=== PATIENT | male | born 1990 | race Caucasian/White ===

== ENCOUNTER 2018-12-13 06:07 | Emergency (ER) | payer SELFPAY ==
[~2018-12-13] VITALS: Ht 180.3 cm; Wt 70.3 kg
[2018-12-13 06:11] VITALS: BP 145/80
== END 2018-12-13 06:35 | disposition left against medical advice (07) ==
LOC: ER 06:07
DX: F15.10 Other stimulant abuse, uncomplicated (principal); L73.9 Follicular disorder, unspecified; F17.200 Nicotine dependence, unspecified, uncomplicated

== ENCOUNTER 2018-12-18 17:19 | Emergency (ER) | payer SELFPAY ==
[~2018-12-18] VITALS: Ht 167.6 cm; Wt 64.4 kg
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
[2018-12-18] MEDS ORDERED: diphenhydrAMINE HCL 50 MG/ML VIAL ONE (17:48)
[2018-12-18] MEDS ORDERED: HALOPERIDOL LACTATE INJ 5 MG/ML VIAL ONE (17:48)
[2018-12-18] MEDS ORDERED: TDAP [DIPH/PERTUSSIS/TET] 0.5 ML VIAL IM ONE ×3 (17:50→18:00)
[2018-12-18] MEDS ORDERED: LORAZEPAM INJ 2 MG/ML VIAL ONE ×2 (17:50→18:13)
[2018-12-18 17:52] LABS: BASOPHILS # (AUTO) 0.1 /CMM (0.0-0.2); BASOPHILS % (AUTO) 0.9 % (0.0-2.0); EOSINOPHILS % (AUTO) 0.6 % (0.0-6.0); HEMATOCRIT 47 % (39-51); HEMOGLOBIN 15.4 g/dL (13.5-17.5); LYMPHOCYTES # (AUTO) 2.5 /CMM (0.8-4.8); LYMPHOCYTES % (AUTO) 36.7 % (20.0-44.0); MEAN CORPUSCULAR HGB CONC 33 g/dl (31.0-36.0); MEAN CORPUSCULAR VOLUME 89 fL (80-96); MONOCYTES # (AUTO) 0.4 /CMM (0.1-1.30); MONOCYTES % (AUTO) 6.3 % (2.0-12.0); NEUTROPHILS # (AUTO) 3.7 /CMM (1.8-8.9); NEUTROPHILS % (AUTO) 55.5 % (43.0-81.0); PLATELET COUNT (AUTO) 332 /CMM (150-450); RED BLOOD CELL COUNT(AUTO) 5.24 MIL/uL (4.5-6.0); WHITE BLOOD COUNT (AUTO) 6.8 K/uL (4.3-11.0)
[2018-12-18 18:00] LABS: CALCIUM, SERUM 9.5 mg/dL (8.5-10.1); CARBON DIOXIDE 23 mmol/L (21-32); CHLORIDE 106 mmol/L (98-107); CREATININE 1.4 mg/dL (0.6-1.3); GLUCOSE 126 mg/dL (74-106); SODIUM SERUM 144 mmol/L (136-145); UREA NITROGEN, BLOOD 15 mg/dL (7-18)
[2018-12-18] MEDS ORDERED: diphenhydrAMINE HCL 50 MG/ML VIAL IM ONE (18:00)
[2018-12-18] MEDS ORDERED: LORAZEPAM INJ 2 MG/ML VIAL IM ONE ×2 (18:00→18:30)
[2018-12-18] MEDS ORDERED: HALOPERIDOL LACTATE INJ 5 MG/ML VIAL IM ONE (18:00)
[2018-12-18 18:05] LABS: ALANINE AMINOTRANSFERASE 22 U/L (12-78); ALCOHOL, BLOOD < 3 mg/dL (0-0); ALKALINE PHOSPHATASE 92 U/L (46-116); ASPARTATE AMINOTRANSFERASE 22 U/L (15-37); BILIRUBIN,DIRECT 0.1 mg/dL (0.0-0.2); BILIRUBIN,TOTAL 0.5 mg/dL (0.2-1.0); SALICYLATE 4.2 mg/dL (2.8-20.0); TOTAL PROTEIN, SERUM 7.6 g/dL (6.4-8.2)
[2018-12-18 18:16] LABS: APPEARANCE,URINE Clear (CLEAR); BILIRUBIN,URINE SMALL (NEGATIVE); BLOOD, URINE Negative Ery/uL (NEGATIVE); COLOR,URINE Yellow (YELLOW); KETONES,URINE Trace (NEGATIVE); LEUKOCYTE ESTERASE ,URINE Negative (NEGATIVE); NITRITE, URINE Negative (NEGATIVE); PH,URINE 5.5 (5.0-8.0); PROTEIN,URINE 100 mg/dl (NEGATIVE); UGLUCOSE Negative (NEGATIVE); UROBILINOGEN,URINE 0.2 EU/dL (0.2)
[2018-12-18 18:17] LABS: ACETAMINOPHEN < 5 ug/ml (10-30)
[2018-12-18 18:53] LABS: RBC,URINE 0-2 /HPF (0-2); WBC,URINE 0-2 /HPF (0-3)
[2018-12-18 18:54] LABS: BACTERIA,URINE Few /HPF (None Seen); MUCUS,URINE Few /LPF (None Seen); SQUAMOUS EPITHELIAL CELL,UR Rare /HPF (None Seen); URINE AMORPHOUS URATE Moderate /HPF (None Seen)
--- NOTE | 2018-12-18 19:34 | NUR ---
SPOKE W/ CRUZ OFFICER [employer]ISH #[id number]. 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
[2018-12-18] MEDS ORDERED: LIDOCAINE 1%-EPI 1:100,000 20 ML VIAL ONE (23:53)
[2018-12-19] MEDS ORDERED: LIDOCAINE 1%-EPI 1:100,000 20 ML VIAL TP ONE
--- NOTE | 2018-12-19 06:41 | NUR ---
Patient discharged to home in stable condition. Written and verbal after care instructions given. Patient verbalizes understanding of instruction. Pt ambulatory with a steady gait. Pt refused to received after care instruction. pt also refused to sign homeless waiver. refused food as well but given water
[2018-12-19 06:45] VITALS: BP 137/73
== END 2018-12-19 06:46 | disposition home or self-care (01) ==
LOC: ER 17:21
DX: S61.412A Laceration without foreign body of left hand, initial encounter (principal); F15.10 Other stimulant abuse, uncomplicated; F23 Brief psychotic disorder; R45.1 Restlessness and agitation; F12.10 Cannabis abuse, uncomplicated; E86.0 Dehydration; R74.8 Abnormal levels of other serum enzymes; F17.200 Nicotine dependence, unspecified, uncomplicated; Z72.89 Other problems related to lifestyle; W26.8XXA Contact with other sharp object(s), not elsewhere classified, initial encounter; Y93.89 Activity, other specified; Y92.89 Other specified places as the place of occurrence of the external cause; Y99.8 Other external cause status
CPT/HCPCS: 12002; 36415; 80048; 80076; 80305; 80307; 80329; 81001; 85025; 90471; 90715; 93005; 96372 ×2; 99284; G0480; J1200; J1630; J2060 ×2; J3490; 81000-TC

== ENCOUNTER 2019-01-10 23:17 | Emergency (ER) | payer SELFPAY ==
[~2019-01-10] VITALS: Ht 180.3 cm; Wt 74.8 kg
[2019-01-10 23:29] VITALS: BP 114/69
== END 2019-01-10 23:40 | disposition home or self-care (01) ==
LOC: ER 23:25
DX: S61.412D Laceration without foreign body of left hand, subsequent encounter (principal); F10.10 Alcohol abuse, uncomplicated; F17.200 Nicotine dependence, unspecified, uncomplicated; Y90.9 Presence of alcohol in blood, level not specified; X58.XXXD Exposure to other specified factors, subsequent encounter

== ENCOUNTER 2019-01-13 21:30 | Emergency (ER) | payer SELFPAY ==
[~2019-01-13] VITALS: Ht 180.3 cm; Wt 74.8 kg
--- NOTE | 2019-01-13 21:42 | NUR ---
PT BIB [facility] TO ER BED 13, C/O: ABDOMINAL PAIN WITH NAUSEA AND VOMITING X 2 DAYS, VOMITED ABOUT 800MLS ON ARRIVAL. METH USER, LAST USED 2 DAYS AGO, AWAITING MED EVAL
[2019-01-13] MEDS ORDERED: ONDANSETRON HCL/PF 4 MG/2 ML VIAL ONE (21:45)
[2019-01-13 21:55] LABS: BASOPHILS # (AUTO) 0.1 /CMM (0.0-0.2); BASOPHILS % (AUTO) 1.1 % (0.0-2.0); HEMATOCRIT 49 % (39-51); HEMOGLOBIN 16.4 g/dL (13.5-17.5); LYMPHOCYTES # (AUTO) 1.1 /CMM (0.8-4.8); MEAN CORPUSCULAR HGB CONC 33 g/dl (31.0-36.0); MEAN CORPUSCULAR VOLUME 90 fL (80-96); MONOCYTES # (AUTO) 0.7 /CMM (0.1-1.30); MONOCYTES % (AUTO) 6.1 % (2.0-12.0); NEUTROPHILS # (AUTO) 8.9 /CMM (1.8-8.9); NEUTROPHILS % (AUTO) 81.8 % (43.0-81.0); PLATELET COUNT (AUTO) 328 /CMM (150-450); RED BLOOD CELL COUNT(AUTO) 5.48 MIL/uL (4.5-6.0); WHITE BLOOD COUNT (AUTO) 10.9 K/uL (4.3-11.0)
[2019-01-13] MEDS ORDERED: IV NS 0.9% 1,000 ML BAG IV ONE (22:00)
[2019-01-13] MEDS ORDERED: ONDANSETRON HCL/PF 4 MG/2 ML VIAL IVP ONE (22:00)
[2019-01-13 22:11] LABS: ALBUMIN 4.3 g/dL (3.4-5.0); BILIRUBIN,DIRECT 0.1 mg/dL (0.0-0.2); BILIRUBIN,TOTAL 0.6 mg/dL (0.2-1.0); CALCIUM, SERUM 9.8 mg/dL (8.5-10.1); POTASSIUM 4.1 mmol/L (3.5-5.1); TOTAL PROTEIN, SERUM 8.7 g/dL (6.4-8.2)
[2019-01-13] MEDS ORDERED: CT SWABBABLE VALVE TRANS SET 1 EA INFUS.SET MC ONE (22:55)
[2019-01-13] MEDS ORDERED: IV NS 0.9% 250 ML IV ONE (22:55)
[2019-01-13] MEDS ORDERED: IOHEXOL-300 100 ML VIAL IV ONE (22:55)
--- NOTE | 2019-01-13 22:55 | NUR ---
PT TAKEN TO CT
[2019-01-13 23:26] LABS: EOSINOPHILS % (MANUAL) 2 % (0-4); LYMPHOCYTES % (MANUAL) 7 % (16-48); MONOCYTES % (MANUAL) 3 % (0-11.0); NEUTROPHILS % (MANUAL) 88 (42-76)
[2019-01-14] MEDS ORDERED: ONDANSETRON HCL/PF 4 MG/2 ML VIAL IV ONE
[2019-01-14] MEDS ORDERED: ONDANSETRON HCL/PF 4 MG/2 ML VIAL ONE (00:01)
--- NOTE | 2019-01-14 01:22 | NUR ---
Patient discharged to the streets in stable condition, refused to sign homeless waiver, cossigned by nurse. Written and verbal after care instructions given. Patient verbalizes understanding of instruction.
[2019-01-14 01:23] VITALS: BP 138/83
== END 2019-01-14 01:23 | disposition home or self-care (01) ==
LOC: ER 21:33
DX: K52.9 Noninfective gastroenteritis and colitis, unspecified (principal); R11.2 Nausea with vomiting, unspecified; R10.31 Right lower quadrant pain; F10.10 Alcohol abuse, uncomplicated; F17.200 Nicotine dependence, unspecified, uncomplicated; Y90.9 Presence of alcohol in blood, level not specified
CPT/HCPCS: 36415; 74177; 80048; 80076; 83690; 85025; 96361; 96374; 96376; 99284; J2405 ×2; J7050; Q9967; J7030